=== PATIENT | female | born 1970 | race Caucasian/White ===

== ENCOUNTER → 2018-01-10 | Outpatient (CLI) | payer OTHER ==
--- NOTE | 2018-01-10 10:17 | US ---
EXAMINATION TYPE: US thyroid st tissue head/neck DATE OF EXAM: 01/10/2018 COMPARISON: NONE CLINICAL HISTORY: E04.9 Goiter. Neck swelling GLAND SIZE: Right Lobe: 4.3 x 1.3 x 2.0 cm Overall Parenchyma: heterogenous Left Lobe: 3.5 x 1.4 x 1.2 cm Overall Parenchyma: heterogeneous Isthmus Thickness: 0.3 cm NODULES RIGHT: # of nodules measured on right: 0 LEFT: # of nodules measured on left: 0 ISTHMUS: # of nodules measured in the isthmus: 0 Bilateral neck scanned, no evidence of lymphadenopathy. Heterogeneous gland without any definite nodules seen at this time. IMPRESSION: Heterogeneous normal-sized thyroid is identified without discrete solid or cystic nodule.
== END | disposition home or self-care (01) ==
LOC: RADUSWWP 08:59
PROVIDERS: ATTEND Family Medicine
DX: E04.9 Nontoxic goiter, unspecified (principal)
CPT/HCPCS: 76536

== ENCOUNTER → 2018-05-21 | Outpatient (CLI) | payer OTHER ==
--- NOTE | 2018-05-21 11:48 | MM ---
Reason for exam: additional evaluation requested from abnormal screening. Last mammogram was performed less than 1 month ago. History: Family history of breast cancer in maternal aunt at age 40. Took hormonal contraceptives for 20 years. Physical Findings: Nurse did not find any significant physical abnormalities on exam. MG 3D Work Up W/Cad LT Spot compression CC, spot compression MLO, and ML view(s) were taken of the left breast. Prior study comparison: May 15, 2018, bilateral MG 3d screening mammo w/cad. November 21, 2010, mammogram, performed at [facility] [place]. The breast tissue is heterogeneously dense. This may lower the sensitivity of mammography. The questioned 12 o'clock distortion appears to disperse. Due to the very dense tissues, precautionary ultrasound upper outer quadrant recommended. These results were verbally communicated with the patient and result sheet given to the patient on 05/21/18. ASSESSMENT: Incomplete: need additional imaging evaluation, BI-RAD 0 RECOMMENDATION: Ultrasound of the left breast. (upper outer quadrant)
--- NOTE | 2018-05-21 11:52 | USB ---
Reason for exam: additional evaluation requested from abnormal screening. History: Family history of breast cancer in maternal aunt at age 40. Took hormonal contraceptives for 20 years. US Breast Workup Limited LT Left limited breast ultrasound including focal area of concern, retroareolar and axilla demonstrates a 0.9 x 0.5 x 1.0cm lobular, cystic, benign lesion at 2 o'clock, a 0.4 x 0.3 x 0.5cm oval, cystic, benign lesion at 2 o'clock and a 0.6 x 0.5 x 0.6cm oval, cystic, benign lesion at the posterior nipple. Precautionary 6 month follow up mammogram recommended. Scanned 12-3 o'clock. Very dense tissue. These results were verbally communicated with the patient and result sheet given to the patient on 05/21/18. ASSESSMENT: Probably benign, BI-RAD 3 RECOMMENDATION: Follow-up diagnostic mammogram of the left breast in 6 months.
== END | disposition home or self-care (01) ==
LOC: RADMAMWWP 10:33
PROVIDERS: ATTEND Family Medicine
DX: R92.8 Other abnormal and inconclusive findings on diagnostic imaging of breast (principal)
CPT/HCPCS: 77065; 76642; G0279; 77061

== ENCOUNTER → 2018-10-17 | Outpatient (CLI) | payer OTHER ==
--- NOTE | 2018-10-18 11:11 | US ---
EXAMINATION TYPE: US venous doppler duplex LE LT DATE OF EXAM: 10/17/2018 4:06 PM COMPARISON: NONE CLINICAL HISTORY: R22.40 SWELLING,MASS AND LUMP. SIDE PERFORMED: Left TECHNIQUE: The lower extremity deep venous system is examined utilizing real time linear array sonog shelbie with graded compression, doppler sonography and color-flow sonography. VESSELS IMAGED: External Iliac Vein (EIV) Common Femoral Vein Deep Femoral Vein Greater Saphenous Vein * Femoral Vein Popliteal Vein Small Saphenous Vein * Proximal Calf Veins (* superficial vessels) Left Leg: Negative for DVT Fluid collection visualized in the left popliteal fossa measuring 3.6 x 1.0 x 2.2 cm IMPRESSION: 1. Left lower extremity ultrasound negative for deep venous thrombosis.
== END | disposition home or self-care (01) ==
LOC: RADUSWWP 15:49
PROVIDERS: ATTEND Family Medicine
DX: R22.40 Localized swelling, mass and lump, unspecified lower limb (principal)

== ENCOUNTER → 2019-05-06 | Outpatient (CLI) | payer OTHER ==
--- NOTE | 2019-05-06 12:40 | EST ---
EXERCISE STRESS AGE: 48 SEX: F HT: 63" WT: 165 PROTOCOL: Kahlil Stress Test STAGE: IV DURATION OF EXERCISE: 10:11 HEART RATE REST: 71 BLOOD PRESSURE REST: 121/76 MAXIMUM HEART RATE ACHIEVED: 159 MAXIMUM BLOOD PRESSURE: 157/73 85% MPHR: 148 100% MPHR: 174 METS: 11.9 INDICATIONS: Syncope. CLINICAL INFORMATION: Baseline EKG shows sinus rhythm, normal axis, normal intervals. The patient exercised on Kahlil protocol for a total of 10 minutes achieving 11 METS, 92% of predicted maximal heart rate without chest pain or diagnostic ST-segment depression. CONCLUSION: 1. Good exercise tolerance. 2. Negative stress test by EKG criteria. MMODL / IJN: [id number] /
== END | disposition home or self-care (01) ==
LOC: RADNMMAIN 08:47
PROVIDERS: ATTEND Family Medicine
DX: R55 Syncope and collapse (principal)
CPT/HCPCS: 93017

== ENCOUNTER 2020-05-18 08:39 | Day surgery (SDC) | payer OTHER ==
[2020-05-13 15:07] VITALS: BMI 27.4
--- NOTE | 2020-05-18 08:30 | P.GSHP ---
History of Present Illness H&P Date: 05/18/20 CHIEF COMPLAINT: Colon screen HISTORY OF PRESENT ILLNESS: The patient is a 49-year-old female who presents for colon screen. Lower endoscopy was offered for further evaluation and management. PAST MEDICAL HISTORY: Please see list. PAST SURGICAL HISTORY: Please see list. MEDICATIONS: Please see list. ALLERGIES: Please see list. SOCIAL HISTORY: No illicit drug use FAMILY HISTORY: No reports of Crohn disease or ulcerative colitis. REVIEW OF ORGAN SYSTEMS: CONSTITUTIONAL: No reports of fevers or chills. PHYSICAL EXAM: VITAL SIGNS: Stable GENERAL: Well-developed pleasant in no acute distress. HEENT: No scleral icterus. Extraocular movements grossly intact. Moist buccal mucosa. NECK: Supple without lymphadenopathy. CHEST: Unlabored respirations. Equal bilateral excursions. CARDIOVASCULAR: Regular rate and rhythm. Distal 2+ pulses. ABDOMEN: Soft, nontender, nondistended. MUSCULOSKELETAL: No clubbing, cyanosis, or edema. ASSESSMENT: 1. Colon screen. PLAN: 1. Recommend proceeding with a lower endoscopy Past Medical History Past Medical History: Thyroid Disorder Additional Past Medical History / Comment(s): SEASONAL ALLERGIES, constipation History of Any Multi-Drug Resistant Organisms: None Reported Past Surgical History: Tonsillectomy, Tubal Ligation, Uterine Ablation Additional Past Surgical History / Comment(s): D&C Past Anesthesia/Blood Transfusion Reactions: No Reported Reaction Smoking Status: Former smoker - Past Family History Mother Family Medical History: Cancer, Chest Pain / Angina Father Family Medical History: Diabetes Mellitus, Hypertension Medications and Allergies Home Medications Medication Instructions Recorded Confirmed Type ALPRAZolam [Xanax] 0.25 mg PO BID PRN 08/06/13 05/13/20 History diphenhydrAMINE [Benadryl] 25 mg PO HS PRN 08/06/13 05/13/20 History L.acidoph,Paracasei, B.lactis 1 each PO DAILY 05/13/20 05/13/20 History [Probiotic] Levothyroxine Sodium [Tirosint] 150 mcg PO DAILY 05/13/20 05/13/20 History Melatonin 5 mg PO HS 05/13/20 05/13/20 History Nortriptyline [Pamelor] 25 mg PO HS 05/13/20 05/13/20 History Allergies Allergy/AdvReac Type Severity Reaction Status Date / Time No Known Allergies Allergy Verified 05/13/20 14:39
[~2020-05-18 08:39] MED LIST: LACTATED RINGERS 1,000 ML IV SCH
[2020-05-18 09:06] VITALS: RESP 16; TEMP 97.6
[2020-05-18] MEDS ORDERED: LIDOCAINE 1% INJ 10MG/ML (20 ML MDV) ONE (09:27)
[2020-05-18] MEDS ORDERED: PROPOFOL 10 MG/ML 20 ML VIAL IV ONE (09:27)
[2020-05-18 10:25] VITALS: BP 109/79; PULSE 60
--- NOTE | 2020-05-18 10:25 | P.PCN ---
Date of Procedure: 05/18/20 Description of Procedure: PREOPERATIVE DIAGNOSIS: Change in bowel habits Generalized abdominal pain POSTOPERATIVE DIAGNOSIS: Change in bowel habits Generalized abdominal pain Cecal volvulus OPERATION: Colonoscopy to the hepatic flexure SURGEON: Kassidy Alvarenga MD. ANESTHESIA: MAC. INDICATIONS: The patient is a 49-year-old female who presents with change in bowel habits including Benefits and risks were described and informed consent was obtained. DESCRIPTION OF PROCEDURE: The patient had undergone Sutab prep. She had been brought into the operating room and laid in the left lateral decubitus position. After adequate intravenous sedation, the rectum was examined with 2% lidocaine jelly. No external hemorrhoids were encountered. The rectal tone was within normal limits. No lesions were palpated in the rectal vault. An Olympus colonoscope was advanced along the rectum to a very tortuous sigmoid colon. Despite multiple maneuvers, the scope advancement ended at the hepatic flexure. Concern for cecal volvulus cannot be excluded. No polyps were found distal to the hepatic flexure. As the patient posed risk for perforation with persistence of the procedure, the procedure was discontinued. The colon was desufflated. The patient had tolerated the procedure well. Withdrawal time was over 6 minutes. FINDINGS: [place] preparation quality scale 1 (1-5) Tortuous sigmoid colon with abrupt caliber change at hepatic flexure concerning for cecal volvulus No external prolapsed hemorrhoids. Scope advanced to the hepatic flexure No arteriovenous malformations. No adenomatous polyps. No focal colitis. RECOMMENDATIONS: Recommend immediate barium enema for cecal volvulus Plan - Discharge Summary Discharge Rx Participant: No New Discharge Prescriptions: Continue diphenhydrAMINE [Benadryl] 25 mg PO HS PRN PRN Reason: Allergy Symptoms ALPRAZolam [Xanax] 0.25 mg PO BID PRN PRN Reason: Anxiety Nortriptyline [Pamelor] 25 mg PO HS Melatonin 5 mg PO HS Levothyroxine Sodium [Tirosint] 150 mcg PO DAILY L.acidoph,Paracasei, B.lactis [Probiotic] 1 each PO DAILY Discharge Medication List ALPRAZolam [Xanax] 0.25 mg PO BID PRN 08/06/13 [History] diphenhydrAMINE [Benadryl] 25 mg PO HS PRN 08/06/13 [History] L.acidoph,Paracasei, B.lactis [Probiotic] 1 each PO DAILY 05/13/20 [History] Levothyroxine Sodium [Tirosint] 150 mcg PO DAILY 05/13/20 [History] Melatonin 5 mg PO HS 05/13/20 [History] Nortriptyline [Pamelor] 25 mg PO HS 05/13/20 [History] Follow up Appointment(s)/Referral(s): Kassidy Alvarenga MD [STAFF PHYSICIAN] - 05/24/20 Patient Instructions/Handouts: *Surgery [facility] - (Anesthesia) Endoscopy Discharge Instructions, Colonoscopy (DC) Activity/Diet/Wound Care/Special Instructions: Repeat colonoscopy 5 years, 2025 Discharge Disposition: HOME SELF-CARE
--- NOTE | 2020-05-18 14:12 | XR ---
EXAMINATION TYPE: XR abdomen 1V DATE OF EXAM: 05/18/2020 COMPARISON: NONE HISTORY: Pain TECHNIQUE: One view abdominal series FINDINGS: The osseous structures are intact. The bowel gas pattern is nonspecific. Diffuse air throughout the bowel. There is curvature of the spine. Arthropathy of the hips. Calcification the pelvis likely vasc ular. IMPRESSION: 1. Nonspecific abdomen.
--- NOTE | 2020-05-19 13:46 | FL ---
EXAMINATION TYPE: FL barium enema w air contrast DATE OF EXAM: 05/19/2020 COMPARISON: None HISTORY: Failed colonoscopy, cecal volvulus TECHNIQUE: Double air contrast technique is utilized to evaluate the colon. Overhead radiographs and fluoroscopic spot imaging as well as real-time evaluation was performed. FINDINGS: Contrast passes in a retrograde manner through the redundant sigmoid colon. There is some r edundancy through the transverse colon. Contrast followed by air is reflux to the cecum. The appendix is identified. Postevacuation images have moderate retention with partial collapse of the distal colon. Presacral sp priya appears normal. Adherent debris versus sessile polyps within the distal transverse colon are note d. Fluoroscopy time 2 minutes 41 seconds Images: 24 IMPRESSION: 1. Adherent debris versus sessile polyps most notably the distal transverse colon. 2. Redundancy to the sigmoid colon and transverse colon.
== END 2020-05-18 12:01 | disposition home or self-care (01) ==
LOC: ORWHC2ENDO 08:39
PROVIDERS: ATTEND Surgery Plastic and Reconstructive Surgery
DX: Q43.8 Other specified congenital malformations of intestine (principal); K56.2 Volvulus; R10.84 Generalized abdominal pain; R19.4 Change in bowel habit; E07.9 Disorder of thyroid, unspecified; J30.2 Other seasonal allergic rhinitis; Z98.51 Tubal ligation status; Z90.89 Acquired absence of other organs; Z98.890 Other specified postprocedural states; Z87.891 Personal history of nicotine dependence; Z80.8 Family history of malignant neoplasm of other organs or systems; Z83.3 Family history of diabetes mellitus; Z82.49 Family history of ischemic heart disease and other diseases of the circulatory system; Z79.890 Hormone replacement therapy; Z79.899 Other long term (current) drug therapy
CPT/HCPCS: 81025; 74018; 45378; J2001; J2704; 74280

== ENCOUNTER → 2020-05-19 | Outpatient (CLI) | payer OTHER | END | disposition home or self-care (01) | LOC: RADFLMAIN 08:47 | PROVIDERS: ATTEND Surgery Plastic and Reconstructive Surgery | DX: Z53.9 Procedure and treatment not carried out, unspecified reason (principal) ==

== ENCOUNTER → 2020-09-07 | Outpatient (CLI) | payer OTHER ==
--- NOTE | 2020-09-07 16:33 | XR ---
EXAMINATION TYPE: XR chest 2V DATE OF EXAM: 09/07/2020 CLINICAL HISTORY: R91.8. History of Covid pneumonia several months ago. TECHNIQUE: Frontal and lateral view of the chest. COMPARISON: None FINDINGS: The cardiomediastinal silhouette is within normal limits for size. Pulmonary vasculature i s normal. There is no focal air space opacity. No pleural effusion. No pneumothorax seen. There is l evocurvature of the inferior thoracic spine. IMPRESSION: No acute cardiopulmonary process.
== END | disposition home or self-care (01) ==
LOC: RADXRMAIN 16:15
PROVIDERS: ATTEND Family Medicine
DX: R91.8 Other nonspecific abnormal finding of lung field (principal); Z86.16 Personal history of COVID-19
CPT/HCPCS: 71046

== ENCOUNTER → 2022-08-09 | Outpatient (CLI) | payer OTHER ==
--- NOTE | 2022-08-10 17:43 | MM ---
Reason for Exam: Screening (asymptomatic). Last mammogram was performed 4 year(s) and 3 month(s) ago. Patient History: Menarche at age 14. First Full-Term at age 20. Postmenopausal. Patient has history of breast feeding. Patient used Hormonal Contraceptives for 20 years. Currently using Estrogen and Progesterone, starting at age 51. Maternal aunt had breast cancer, age 40. Risk Values: Mariah 5 year model risk: 0.7%. NCI Lifetime model risk: 6.5%. Prior Study Comparison: 11/21/2010 Screening Mammogram, [facility]. 05/15/2018 Bilateral Screening Mammogram, [facility]. 05/21/2018 Left Diagnostic Mammogram, [facility]. Tissue Density: The breast tissue is heterogeneously dense. This may lower the sensitivity of mammography. Findings: Analyzed By CAD. Pattern appears symmetrical and stable. No significant interval change is evident. No suspicious groups of microcalcifications, spiculated or lobular masses, architectural distortion or other secondary signs of malignancy are mammographically apparent. Overall Assessment: Benign, BI-RAD 2 Management: Screening Mammogram of both breasts in 1 year. A negative mammogram report should not preclude additional follow up of suspicious palpable abnormalities. Patient should continue monthly self breast exam. A clinical breast exam by your physician is recommended on an annual basis and results should be correlated with mammographic findings. Electronically signed and approved by: Hugo Giang D.O. Radiologis
== END | disposition home or self-care (01) ==
LOC: RADMAMWWP 07:57
PROVIDERS: ATTEND Family Medicine
DX: Z12.31 Encounter for screening mammogram for malignant neoplasm of breast (principal); Z78.0 Asymptomatic menopausal state; Z80.3 Family history of malignant neoplasm of breast
CPT/HCPCS: 77063; 77067

== ENCOUNTER → 2023-01-25 | Outpatient (CLI) | payer OTHER ==
[2023-01-25 18:45] LABS: Clam IgE <0.10 kU/L; Codfish IgE <0.10 kU/L; Egg White IgE <0.10 kU/L; Peanut IgE <0.10 kU/L; Scallop IgE <0.10 kU/L; Shrimp IgE <0.10 kU/L; Soybean IgE <0.10 kU/L; Walnut IgE (Food) <0.10 kU/L
[2023-01-28 19:14] LABS: Beef IgG 7.3 mcg/mL (<2.0)
[2023-01-28 19:15] LABS: Banana IgG 30.5 mcg/mL (<2.0); Orange IgG <2.0 mcg/mL (<2.0); Pork IgG 2.4 mcg/mL (<2.0)
[2023-01-28 19:16] LABS: Apple IgG <2.0 mcg/mL (<2.0); Chicken Meat IgG <2.0 mcg/mL (<2.0)
== END | disposition home or self-care (01) ==
LOC: LABWHC1 09:40
PROVIDERS: ATTEND Otolaryngology
DX: J30.89 Other allergic rhinitis (principal)
CPT/HCPCS: 36415; 82785; 86001; 86003

== ENCOUNTER → 2023-03-18 | Outpatient (CLI) | payer OTHER | END | disposition home or self-care (01) | LOC: LABWHC1 13:28 | PROVIDERS: ATTEND Otolaryngology | DX: J30.89 Other allergic rhinitis (principal) | CPT/HCPCS: 36415; 86001 ==